=== PATIENT | male | born 1995 | race Caucasian/White ===

== ENCOUNTER 2018-06-18 12:02 | Emergency (ER) | payer OTHER, SELFPAY ==
[2018-06-18 12:04] VITALS: BP 152/94; PULSE 70; RESP 18; TEMP 37.1; O2SAT 95; BMI 22.8
[2018-06-18 12:06] VITALS: O2SAT 99
[2018-06-18] MEDS: 0.9% Normal Saline 1,000 ML 1000 ML IV ×2 (12:40)
[2018-06-18 12:41] VITALS: BP 131/73; BP 137/86; BP 142/87; PULSE 73; PULSE 76
[2018-06-18 12:54] LABS: Absolute Lymphocyte Count 1.62 X10^3/ul (0.83-4.51); Absolute Neutrophil Count 4.4 X10^3/uL (2.0-7.7); Basophil# 0.02 X10^3/uL; Basophil% 0.3 % (0-1); Eosinophil# 0.04 X10^3/uL; Eosinophils% 0.6 % (0-5); Hematocrit 42.8 % (40-54); Hemoglobin 14.8 g/dl (13.0-16.5); Lymphocyte # 1.62 X10^3/ul (4.0); Lymphocyte % 24.7 % (19-41); Mean Corp Hgb Conc 34.6 g/gl (32-36); Mean Corpuscular Hgb 31.8 pg (27.0-32.0); Monocyte% 7.6 % (0-10); Neutrophil # 4.37 X10^3/uL (2.7-7.7); Neutrophil % 66.8 % (47-70); Platelet Count 183 K/mm3 (150-450); RBC Distribution Width CV 12.7 % (11.6-14.6); RBC Distribution Width SD 42.2 fl (35.1-43.9); Red Blood Count 4.65 M/mm3 (4.6-6.2); White Blood Count 6.6 K/mm3 (4.4-11.0)
[2018-06-18 13:17] LABS: Anion Gap 9 (5-15); BUN 11 mg/dL (7-18); BUN/Creat Ratio 12.2 RATIO (10-20); Calcium,Total 9.2 mg/dL (8.5-10.1); Chloride 106 mmol/L (98-107); EST Glomerular Filtration Rate 110 mL/min (>60); Est Glom Filt Rate - Afr Amer 133 mL/min (>60); Estimated Creatinine Clearance 125.86 ml/min; Glucose 120 mg/dL (74-106); Potassium 3.4 mmol/L (3.5-5.1); Sodium Level 140 mmol/L (136-145)
[2018-06-18 13:26] LABS: POSITIVE COUNT NO; POSITIVE DIFFERENTIAL NO; POSITIVE MORPHOLOGY NO
--- NOTE | 2018-06-18 14:01 | ED.VISSUMM ---
- ER Visit Summary Date of Service: 06/18/18 Chief Complaint: Dizzy and lightheaded History of Present Illness: The patient is a 23 M past medical history. Patient states that he has drank for amount of alcohol this weekend. Today at work he felt lightheaded and dizzy. He was tingling all over. [place] like he might pass out but did not pass out. No LOC. Denies any chest pain. Denies any hemoptysis. Denies any recent travel surgery or mobilization. Denies any leg pain or swelling. No history of prior DVT or PE. He denies any vomiting, diarrhea or melena. No abdominal pain. Physical Examination: Well-appearing young male. Vital signs table is afebrile. His blood pressure 152/94. Pulse ox is 95% on room air his temperature is 98. He does not look septic or toxic he does not look in any distress. H EENT exam atraumatic. Pupils round reactive light. Moist mucous membranes. Posterior pharynx unremarkable. Neck nontender. No lymphadenopathy. No meningismus. Lungs clear to auscultation bilaterally. Heart regular rhythm no murmur rate about 70. Abdomen soft nontender. Normal bowel sounds is moving all 4 extremities. They are neurovascularly intact. Calves are nontender without edema or cords. Neurologically is awake alert with no focal motor or sensory deficits. NIH score is 0. Back exam normal. Skin exam normal. No rashes. No petechiae or purpura. Test Results: EKG sinus rhythm rate is 70 with no CO or ischemia. No dysrhythmia. White count 6. H&H 14 and 42. No bands. Electrolytes unremarkable. Potassium 3.4. Normal BUN and creatinine normal gap at 9 glucose of 120. Emergency Department Course and Treatment: Patient is doing well after liter normal saline. Orthostatic vital signs were negative prior to fluids being completed. Repeat exam is doing well at 1400. He is ambulating in the hallway. Treatment Plan: Plenty of fluids and rest. Follow-up with primary care physician if not improving. Disposition: Discharge Impression: Near syncope of uncertain etiology This note was generated with [employer] dictation software. It may contain incorrect words, spelling, and punctuation that were not noted in review of the chart prior to signing ED Disposition - Plan for ED Patient: Chief Complaint: Shortness of Breath Referrals: Care Physician,No Primary [Primary Care Provider] -
--- NOTE | 2018-06-18 14:05 | ED.DCSUM_ITS ---
- ER Visit Summary Date of Service: 06/18/18 Chief Complaint: Dizzy and lightheaded History of Present Illness: The patient is a 23 M past medical history. Patient states that he has drank for amount of alcohol this weekend. Today at work he felt lightheaded and dizzy. He was tingling all over. [place] like he might pass out but did not pass out. No LOC. Denies any chest pain. Denies any hemoptysis. Denies any recent travel surgery or mobilization. Denies any leg pain or swelling. No history of prior DVT or PE. He denies any vomiting, diarrhea or melena. No abdominal pain. Physical Examination: Well-appearing young male. Vital signs table is afebrile. His blood pressure 152/94. Pulse ox is 95% on room air his temperature is 98. He does not look septic or toxic he does not look in any distress. H EENT exam atraumatic. Pupils round reactive light. Moist mucous membranes. Posterior pharynx unremarkable. Neck nontender. No lymphadenopathy. No meningismus. Lungs clear to auscultation bilaterally. Heart regular rhythm no murmur rate about 70. Abdomen soft nontender. Normal bowel sounds is moving all 4 extremities. They are neurovascularly intact. Calves are nontender without edema or cords. Neurologically is awake alert with no focal motor or sensory deficits. NIH score is 0. Back exam normal. Skin exam normal. No rashes. No petechiae or purpura. Test Results: EKG sinus rhythm rate is 70 with no LA or ischemia. No dysrhythmia. White count 6. H&H 14 and 42. No bands. Electrolytes unremarkable. Potassium 3.4. Normal BUN and creatinine normal gap at 9 glucose of 120. Emergency Department Course and Treatment: Patient is doing well after liter normal saline. Orthostatic vital signs were negative prior to fluids being completed. Repeat exam is doing well at 1400. He is ambulating in the hallway. Treatment Plan: Plenty of fluids and rest. Follow-up with primary care physician if not improving. Disposition: Discharge Impression: Near syncope of uncertain etiology This note was generated with [employer] dictation software. It may contain incorrect words, spelling, and punctuation that were not noted in review of the chart prior to signing ED Disposition - Plan for ED Patient: Chief Complaint: Shortness of Breath Referrals: Care Physician,No Primary [Primary Care Provider] -
--- NOTE | 2018-06-18 14:05 | ED.DEP ---
ED Disposition - Plan for ED Patient: Disposition: Home or Assisted Living Chief Complaint: Shortness of Breath Instructions: ED Near Syncope Unkn Referrals: Donovan Emanuel MD [STAFF PHYSICIAN] - 1 Week if not improving Additional Instructions: Plenty of fluids and rest. Follow-up with not feeling better or return to ER if feeling worse.
[2018-06-18 14:39] VITALS: BP 124/94; PULSE 71; RESP 18; O2SAT 99
--- NOTE | 2018-06-19 11:09 | CM.ED ---
ED CALLBACK: Follow-up call placed to patient with no answer and no voicemail option.
== END 2018-06-18 14:40 | disposition home or self-care (01) ==
PROVIDERS: Emergency Provider Emergency Medicine
DX: R55 Syncope and collapse (principal); Z72.0 Tobacco use
CPT/HCPCS: 80048; 85025; 93005; 96360; 96361; 99285; J7030; A4216

== ENCOUNTER 2018-07-28 01:30 | Emergency (ER) | payer OTHER, SELFPAY ==
[2018-07-28 01:31] VITALS: BP 116/85; PULSE 76; RESP 15; TEMP 36.6; O2SAT 96; BMI 23.0
[2018-07-28 01:33] VITALS: O2SAT 96
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
[2018-07-28 02:22] VITALS: BP 124/60; PULSE 72; RESP 15; O2SAT 96
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
[2018-07-28 03:53] VITALS: BP 115/62; PULSE 83; RESP 18; O2SAT 99
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
[2018-07-28 04:35] VITALS: BP 110/67; PULSE 81; RESP 16; O2SAT 97
--- NOTE | 2018-07-28 04:36 | ED.RN ---
THIS NURSE REVIEWED D/C INSTRUCTIONS WITH PT AND FAMILY. PT VERBALIZED UNDERSTANDING OF INSTRUCTIONS. PT DENIES FURTHER NEEDS OR QUESTIONS AT THIS TIME. PT AMBULATES FROM ROOM ON OWN WITHOUT ASSISTANCE FROM STAFF
== END 2018-07-28 04:37 | disposition home or self-care (01) ==
PROVIDERS: Emergency Provider Emergency Medicine
DX: S27.321A Contusion of lung, unilateral, initial encounter (principal); S32.019A Unspecified fracture of first lumbar vertebra, initial encounter for closed fracture; V47.5XXA Car driver injured in collision with fixed or stationary object in traffic accident, initial encounter; Y93.9 Activity, unspecified; Y92.488 Other paved roadways as the place of occurrence of the external cause; Y99.9 Unspecified external cause status; Z72.0 Tobacco use
CPT/HCPCS: 72040; 72128; 74176; 99284

== ENCOUNTER → 2019-06-10 15:44 | Outpatient (CLI) | payer OTHER, SELFPAY ==
[2019-06-10 15:35] VITALS: BMI 23.0
--- NOTE | 2019-06-10 15:46 | RAD_ITS ---
STUDY: X-RAY - RIGHT HAND REASON FOR EXAM: Male, 24 years old. Injury right hand TECHNIQUE: 3 view(s) of the hand. COMPARISON: None FINDINGS: Normal radiocarpal articulation. Normal distal radioulnar joint. No fracture mid shaft fifth metacarpal with slight volar angulation. Normal carpal articulations Normal carpometacarpal articulation of the thumb. Normal second through fifth carpometacarpal joints. Normal metacarpi. Normal metacarpophalangeal joint of the thumb. Normal interphalangeal joint of the thumb. Normal proximal and distal phalanges of the thumb. Normal metacarpophalangeal joints of the second through fifth fingers. Normal proximal and distal interphalangeal joints of the second through fifth fingers. Normal phalanges of the second through fifth fingers. The soft tissue structures are unremarkable. RAD/Hand Min 3 Views IMPRESSION: Fracture fifth metacarpal Electronically Signed: Thad Hays MD at 16:07 EDT , Service support ,
== END ==
LOC: HPRAD 15:45
PROVIDERS: Referring Provider Physician Assistant Surgical; Visit Provider Physician Assistant Surgical
DX: S60.221A Contusion of right hand, initial encounter (principal)
CPT/HCPCS: 73130

== ENCOUNTER 2019-06-19 10:50 | Day surgery (SDC) | payer OTHER, SELFPAY ==
[2019-06-14 09:42] VITALS: BMI 23.6
[2019-06-19 11:21] VITALS: BP 118/73; PULSE 76; RESP 16; TEMP 36.9; O2SAT 99; BMI 22.8
[2019-06-19] MEDS: Lactated Ringers 1,000 ML 100 ML IV ×2 (11:35→13:40)
[2019-06-19] MEDS: Cefazolin 2 GM in 0.9% Normal Saline 100 ML IV (12:14)
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
--- NOTE | 2019-06-19 12:32 | PCM.DC.ORTHO ---
Discharge Diet: No Restrictions - leave splint on until seen in office, follow up in 2 weeks, nwb right arm, call with concerns, call for appt Discharge Activity: May Not Drive May shower in (days): 1 Ice area for (Minutes): 20 - Every hour while awake. Weight Bearing Status: Weight bearing as tolerated Keep extremity elevated above heart level: Operative Extremity Call your doctor if your incision/area has: Continuous Slow Oozing, Sudden Increased Bleeding, Increased Pain/ Swelling, Increased Redness, Foul Smelling Discharge Call your doctor if you observe: Fever of 101 or Higher, Coldness, Increased Pain, Numbness or Tingling, Change in Color, Calf discomfort Allergies/Adverse Reactions: Allergies No Known Allergies Allergy (Verified 06/19/19 11:16) Medications to take at Discharge Oxycodone HCl/Acetaminophen [Percocet 5/325] 1 - 2 tab PO Q6H PRN PRN 5 Days #28 tab 06/19/19 The following prescriptions were given: Oxycodone HCl/Acetaminophen [Percocet 5/325] 1 - 2 tab PO Q6H PRN PRN 5 Days #28 tab PRN Reason: Pain Transmission Status: Received by [facility] Primary Care Physician: Care Physician,No Primary [Primary Care Provider] - Test Results: Test results from this visit will be discussed in further detail at your follow-up appointment, if applicable. Please Follow Up With: Bonnie Alves, - [phone]
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
--- NOTE | 2019-06-19 12:33 | HP.PCM_ITS ---
History and Physical ADDENDUM Addendum entered and electronically signed by Bonnie Alves DO 06/14/19 10:29: add code [id number] Assessment & Plan Problems 1. Closed displaced fracture of shaft of fifth metacarpal bone of right hand, initial encounter S62.326A Plan - Bonnie Alves DO Reviewed the pre-operative plans with the patient. Risks and benefits of the procedure were fully explained, including but not limited to infection, neurovascular injury, continued pain, arthritis, stiffness, need for further surgery, re-injury, DVT, PE, general risks of anesthesia, and loss of limb or life. The patient understands all the risks and does wish to proceed with written consent. right hand fifth metacarpal orif. Follow up 2 weeks after surgery or sooner if pain, swelling, numbness or associated symptoms, or concerns develop. All questions answered. Patient in agreement of plan. Intake Vital Signs 06/14/19 Body Mass Index (BMI) 23.6 Intake Visit Reasons: R. HAND Allergies No Known Allergies Allergy (Verified 06/10/19 16:01) PFS Social History (Updated 06/14/19 @ 15:49 by DORY Lopez) Smoking Status: Current every day smoker alcohol intake: never I have re-examined the patient. There are no clinical changes since date of exam. HPI R. HAND: Details: Parts of this documentation were recorded by a scribe, this documentation accurately reflects the service provided and the decisions made by me, Wilder Metz DO 06/14/19 0751. THANH JOHNSON is a 24 year old M here today for right hand fracture. Patient states that about 2 weeks ago he punched a door. HE states that he had swelling and pain immediately after. He did not seek medical attention at that time as he had a previous fracture that he states he thought was similar and they didn't do anything for. He denies any numbness and tingling in the fingers. He is able to move his fingers fine. He has minimal pains. Ortho Exam Right Wrist/Hand Right Wrist: Yes TTP Fracture site Motor: EPL: 5, FDP-2: 5, 1st Dorsal Interosseous: 5, APB: 5 Assessment & Plan Problems 1. Closed displaced fracture of shaft of fifth metacarpal bone of right hand, initial encounter S62.204A Plan - Bonnie Alves DO Reviewed the pre-operative plans with the patient. Risks and benefits of the procedure were fully explained, including but not limited to infection, neurovascular injury, continued pain, arthritis, stiffness, need for further surgery, re-injury, DVT, PE, general risks of anesthesia, and loss of limb or life. The patient understands all the risks and does wish to proceed with written consent. right hand fifth metacarpal orif. Follow up 2 weeks after surgery or sooner if pain, swelling, numbness or associated symptoms, or concerns develop. All questions answered. Patient in agreement of plan. Coding Level of Care Code Off vis,new,level 3 Diagnoses Closed displaced fracture of shaft of fifth metacarpal bone of right hand, initial encounter N31.533K ??Encounter type: initial encounter ??Fracture alignment: displaced ??Fracture type: closed ??Metacarpal location: shaft
[2019-06-19] MEDS: Bupivacaine Mpf 0.5% 30 ML VIAL (14:00)
[2019-06-19] MEDS: Mupirocin Ointment 22gm Tube 1 APPLIC (14:20)
[2019-06-19 14:38] VITALS: BP 118/73; BP 127/79; PULSE 90; RESP 14; TEMP 36.7; O2SAT 98
[2019-06-19 14:46] VITALS: BP 118/73; BP 128/83; PULSE 70; RESP 16; O2SAT 97
[2019-06-19 15:00] VITALS: BP 118/73; BP 129/94; PULSE 66; RESP 16; TEMP 36.4; O2SAT 98
[2019-06-19 15:35] VITALS: BP 118/73
== END 2019-06-19 15:55 | disposition home or self-care (01) ==
LOC: SDC 10:54 → AC 10:55
PROVIDERS: Referring Provider Orthopaedic Surgery; Visit Provider Orthopaedic Surgery
PROC: (CPT 26615; principal; 2019-06-19 12:15)
DX: S62.326A Displaced fracture of shaft of fifth metacarpal bone, right hand, initial encounter for closed fracture (principal); W22.09XA Striking against other stationary object, initial encounter; F17.210 Nicotine dependence, cigarettes, uncomplicated
CPT/HCPCS: 01830; 26615; 73130; 76000; C1713; J7120; J2405

== ENCOUNTER → 2019-07-02 13:36 | Outpatient (CLI) | payer OTHER, SELFPAY ==
[2019-06-19 11:21] VITALS: BMI 22.8
--- NOTE | 2019-07-02 13:38 | RAD_ITS ---
STUDY: X-RAY - RIGHT HAND REASON FOR EXAM: Postop. TECHNIQUE: 3 view(s) of the hand. COMPARISON: Intraoperative images 06/19/2019. FINDINGS: Normal radiocarpal articulation. Normal distal radioulnar joint. Normal visualized carpal bones. Normal carpal articulations Normal carpometacarpal articulation of the thumb. Normal second through fifth carpometacarpal joints. There is an orthopedic plate and screws transfixing a fifth metacarpal diaphyseal fracture in anatomic alignment and position with early callus formation. There is healed fracture deformity of fourth metacarpal. Normal metacarpophalangeal joint of the thumb. Normal interphalangeal joint of the thumb. Normal proximal and distal phalanges of the thumb. Normal metacarpophalangeal joints of the second through fifth fingers. Normal proximal and distal interphalangeal joints of the second through fifth fingers. Normal phalanges of the second through fifth fingers. The soft tissue structures are unremarkable. RAD/Hand Min 3 Views IMPRESSION: ORIF of fifth metacarpal fracture with early callus formation. Electronically Signed: Raimundo Rodriguez MD at 16:00 EDT Tel , Service support ,
== END ==
PROVIDERS: Referring Provider Orthopaedic Surgery; Visit Provider Orthopaedic Surgery
DX: S62.306A Unspecified fracture of fifth metacarpal bone, right hand, initial encounter for closed fracture (principal); S60.221A Contusion of right hand, initial encounter
CPT/HCPCS: 73130

== ENCOUNTER 2019-08-01 12:30 | Outpatient (RCR) | payer OTHER, SELFPAY ==
[2019-07-02 13:49] VITALS: BMI 22.8
--- NOTE | 2019-07-03 12:37 | HP.OTEVAL_ITS ---
Patient's Visit Information THANH JOHNSON Jr. is a 24 year old M, referred to Occupational Therapy by Bonnie Alves DO, with a diagnosis of s/p R 5th metacarpal ORIF (06-19-19). Date of Evaluation: 07/03/19 Occupational Therapist: Viviana Luevano, OTR/L - Subjective Subjective: Thanh arrived with mother and noted original injury occured about a month ago after punching door. He noted surgery was 2 weeks ago on 06-19-19 in which he had ORIF placement to R 5th finger. Noted that he was working at [employer] and he is on a 10 lbs weight restriction. He is working at [employer] as [employer] and is on 10 lbs weight restriction. - ADLs Kitchen: Chop with knife, Open jars, Open bottle caps Yard: Mow lawn, [place], [place] Miscellaneous: Use hand tools, Use power tools, Use computer keyboard, Operate spray bottle Comments: Noted able to completed most self- care just increased - Pain R PF 0 Pain Intensity Range: 0, 4 - Objective Concerns: Has ankle monitor and is not permitted to drive at this time. Due to restrictions with driving OT working on getting him scheduled through van services. Mother noted she will bring to some appointments but also works. Due to driving restrictions will likely only completed 1x weekly appointments due to limited transportation and 20 copay. Educated there is about 10% break if completing copay at beginning of every appointment. - ROM Wrist: flexion R 0-70, L 0-75; ext R 0-43, L 0-46 MP: PF R 20-70, L -4-94 PIP: PF R 0-94, L 0-93 DIP: PF R 0-72, L 0-76 - Strength Strength Comments: will take at first session. - Edema Other: MCP circumference R 9 inchs, L 8.5 inches - Sensation Sensation Comments: Denies numbness or tingling. 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 Goal:: Thanh to regain at least 80% of ROM when compared to L nonaffected hand of PF for ADL/IADLs tasks by end of d/c. Goal:: Thanh to have no more than 1/10 pain with repetitive movements of freight and passenger agent and relase needed to return to PLOF for job related tasks by d/c. Goal:: Thanh to be mod I to complete edema management techniques of R hand to promote increased management of sweling 4/5 trials 80% of the time by d/c. Goal:: Thanh to complete daily scar massage to decrease scar tissue formation and promote ROM 4/5 trials 80% of the time by d/c. Goal:: Thanh to completed good ergonomic positioning and joint protection techniques of R hand 4/5 trials 80% of the time to promote tchniques needed to decrease risk of further inujury by d/c. Goal:: Thanh to complete daily HEP including management of splint 4/5 trials 80% of the time to promote returning to PLOF for strength and ROM by d/c. - Rehabilitation General Assessment: Thanh is s/p R 5th MCP ORIF after traumatic injury resulting from punching door. Thanh arrived to evaluation with mother on this date of 07/03/19. Thanh is working part-time at [employer] and is off work at [employer]. Thanh exhibits increased edema, decreased strength and ROM of R hand. 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 Skilled OT warranted to address pain, edema management, strength through PRE, and general ability to return to PLOF for all work and self-care tasks. Rehabilitation Potential: Excellent - Anticipated Interventions Anticipated Interventions: A/AAROM/PROM, Strengthening, Modalities, Orthoses, Joint Protection/Energy Conservation, Ergonomic Education, Fine Motor Coord/Shantanu, ADL Training, Caregiver Training, Home Program - Visit Plan Frequency: 1-2x /Week Duration: 4 Weeks General Plan: Thanh to complete weekly OT tx to promote increased ROM, strength through PRE, edema management, ergonomic and jt protection training, management of custom splint, and general ability to return to PLOF. TEXT: Thank you for the opportunity to evaluate your patient. For Medicare and Medicare HMO plans, please review the plan of care and approve it. It will need to be FAXED BACK to us at [phone] for Medicare purposes. Please let me know if there are questions or concerns regarding this plan of care. Physician Signature: Date:
--- NOTE | 2019-10-03 09:36 | HP.OTDCNRP_ITS ---
HP - Discharge Summary - Patient Information THANH JOHNSON Jr. was seen in my office for initial evaluation on 07/03/19. The following Plan of Care was established for this patient: Initial Frequency: 1-2x /Week Initial Duration: 4 Weeks Plan: continue POC. - Anticipated Interventions Anticipated Interventions: A/AAROM/PROM, Strengthening, Modalities, Orthoses, Joint Protection/Energy Conservation, Ergonomic Education, Fine Motor Coord/Shantanu, ADL Training, Caregiver Training, Home Program This patient was last seen in our office 08/01/19. Pertinent comments regarding their Occupational therapy will appear below: Last seen in clinic 08/01/19. He still had appointment to complete as part of plan of care but nothing was scheduled. 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 Chart will be d/c'd at this time. At this point I will be discontinuing this patient from occupational therapy. I would be happy to see this patient again in the future if found appropriate by the physician. Thank you! Viviana Luevano, OTR/L
== END 2019-08-01 19:00 | disposition home or self-care (01) ==
LOC: OT 12:30
PROVIDERS: Referring Provider Orthopaedic Surgery; Visit Provider Orthopaedic Surgery
DX: Z98.890 Other specified postprocedural states (principal)
CPT/HCPCS: 97166; 97530; 97760

== ENCOUNTER → 2019-08-01 13:14 | Outpatient (CLI) | payer OTHER, SELFPAY ==
[2019-08-01 13:14] VITALS: BMI 22.8
--- NOTE | 2019-08-01 13:16 | RAD_ITS ---
STUDY: X-RAY - RIGHT HAND REASON FOR EXAM: Follow-up fifth metacarpal fracture. TECHNIQUE: 3 view(s) of the hand. COMPARISON: Radiographs 07/02/2019. FINDINGS: Normal radiocarpal articulation. Normal distal radioulnar joint. Normal visualized carpal bones. Normal carpal articulations Normal carpometacarpal articulation of the thumb. Normal second through fifth carpometacarpal joints. There is an orthopedic plate and screws transfixing a fifth metacarpal diaphyseal fracture with increasing callus. There is chronic healed fracture deformity of the fourth metacarpal. Normal metacarpophalangeal joint of the thumb. Normal interphalangeal joint of the thumb. Normal proximal and distal phalanges of the thumb. Normal metacarpophalangeal joints of the second through fifth fingers. Normal proximal and distal interphalangeal joints of the second through fifth fingers. Normal phalanges of the second through fifth fingers. The soft tissue structures are unremarkable. RAD/Hand Min 3 Views IMPRESSION: ORIF of healing fifth metacarpal fracture. Electronically Signed: Raimundo Rodriguez MD at 14:33 EDT Tel , Service support ,
== END ==
PROVIDERS: Referring Provider Orthopaedic Surgery; Visit Provider Orthopaedic Surgery
DX: S60.221A Contusion of right hand, initial encounter (principal); S62.306A Unspecified fracture of fifth metacarpal bone, right hand, initial encounter for closed fracture; Z47.89 Encounter for other orthopedic aftercare
CPT/HCPCS: 73130

== ENCOUNTER → 2019-08-13 08:11 | Outpatient (CLI) | payer OTHER, SELFPAY ==
[2019-08-01 13:14] VITALS: BMI 22.8
--- NOTE | 2019-08-13 08:12 | RAD_ITS ---
STUDY: X-RAY - RIGHT HAND REASON FOR EXAM: Status post ORIF of fifth metacarpal fracture. TECHNIQUE: 3 view(s) of the hand. COMPARISON: Radiographs 08/01/2019 and 07/02/2019. FINDINGS: Normal radiocarpal articulation. Normal distal radioulnar joint. Normal visualized carpal bones. Normal carpal articulations Normal carpometacarpal articulation of the thumb. Normal second through fifth carpometacarpal joints. There is an orthopedic plate and screws transfixing a healing fracture of the fifth metacarpal diaphysis with little interval change. There is chronic healed fracture deformity of the fourth metacarpal diaphysis. Normal metacarpophalangeal joint of the thumb. Normal interphalangeal joint of the thumb. Normal proximal and distal phalanges of the thumb. Normal metacarpophalangeal joints of the second through fifth fingers. Normal proximal and distal interphalangeal joints of the second through fifth fingers. Normal phalanges of the second through fifth fingers. The soft tissue structures are unremarkable. RAD/Hand Min 3 Views IMPRESSION: Little interval change of ORIF of fifth metacarpal fracture. Electronically Signed: Raimundo Rodriguez MD at 11:43 EDT Tel , Service support ,
== END ==
PROVIDERS: Referring Provider Orthopaedic Surgery; Visit Provider Orthopaedic Surgery
DX: M79.643 Pain in unspecified hand (principal)
CPT/HCPCS: 73130

== ENCOUNTER 2019-10-02 08:36 | Day surgery (SDC) | payer OTHER, SELFPAY ==
[2019-08-13 08:16] VITALS: BMI 22.8
[2019-09-05 15:11] VITALS: BMI 22.8
[2019-10-02 08:55] VITALS: BP 139/81; PULSE 77; RESP 15; TEMP 36.6; O2SAT 100; BMI 22.8
[2019-10-02] MEDS: Lactated Ringers 1,000 ML 100 ML IV (09:05)
--- NOTE | 2019-10-02 10:22 | PCM.HP.BLA ---
History and Physical INSERT H AND P NO CHANGES Intake Vital Signs 09/05/19 Body Mass Index (BMI) 22.8 Intake Visit Reasons: right hand Allergies No Known Allergies Allergy (Verified 06/19/19 11:16) [facility] Social History (Updated 09/06/19 @ 08:05 by DORY Lopez) Smoking Status: Current every day smoker alcohol intake: never HPI right hand: Details: Parts of this documentation were recorded by a scribe, this documentation accurately reflects the service provided and the decisions made by me, DORY Lopez 09/05/19 [id number]. THANH JOHNSON is a 24 year old M here today for 2 month post op to sign surgery consent for hardware removal right fifth metacarpal. Denies numbness, tingling or other associated symptoms. ROS Musc Denies joint pain, Reports joint swelling, Denies numbness, Denies radiating pain into limb, Reports stiffness, Denies tingling Skin/Breast Denies redness, Denies lesions, Denies itching, Denies rash, Denies skin swelling Neuro No numbness, No tingling Ortho Exam Right Wrist/Hand Skin/Wound: Yes healed, No Swelling, No Ecchymosis Contralateral Normal: Yes Right Wrist: Yes ROM-Extension 0-60, ROM-Flexion 0-80, ROM-Pronation 0-80, ROM-Supination 0-90 and TTP Fracture site (Some tenderness over hardware) Sensation: Radial: I, Ulnar: I, Median: I WRIST: No acute abnormalities on inspection. There is no evidence of generalized swelling, ecchymosis/bruising, inflammatory changes, or other skin changes. Patient has some minor tenderness on palpation of the hardware. He does have intact motor function and full range of motion of the wrist as well as all the digits. He has normal sensation throughout the extremity, normal capillary refill, and normal distal radial pulses. Left Wrist/Hand Skin/Wound: No Swelling, No Ecchymosis no abd pain, no audible bruits, no r/r/w Assessment & Plan Problems 1. Closed displaced fracture of shaft of fifth metacarpal bone of right hand, initial encounter S62.326A Plan Patient presents to the office pre-surgery to sign consent for a hardware removal of the right fifth metacarpal. Patient states that he just has some discomfort in the area and would like to have this hardware removed. We discussed risks and benefits of the surgery as well as postoperative which include blood clot, blood loss, neurovascular injury, infection, failure of procedure, and loss of limb or loss of life. We also discussed that removing screws can create some weakening of the bone as these holes fill in. Patient is aware of these risks and would like to proceed with surgery for the hardware removal. Consent was signed in office today. Patient was given antimicrobial cleansed to be used the night before morning of. Patient be contacted by surgery/anesthesia for presurgery testing. Patient was already given the date of his surgery and will be notified the day before for the time of his surgery. Notify with any other questions or concerns in the meantime. This note was generated with [employer] dictation software. It may contain incorrect words, spelling, and punctuation that were not noted in checking the note before signing. Coding Level of Care Code Off vis,est,level 2 Diagnoses Closed displaced fracture of shaft of fifth metacarpal bone of right hand, initial encounter S62.326A ??Encounter type: initial encounter ??Fracture type: closed ??Metacarpal location: shaft ??Fracture alignment: displaced
--- NOTE | 2019-10-02 10:23 | DCINST_ITS ---
Discharge Diet: No Restrictions - right hand nwb, splint at all times, keep clean and dry, call with concerns, follow up in 2 weeks or sooner if issues Discharge Activity: May Not Drive May shower in (days): 1 Ice area for (Minutes): 20 - Every hour while awake. Weight Bearing Status: Weight bearing as tolerated Keep extremity elevated above heart level: Operative Extremity Call your doctor if your incision/area has: Continuous Slow Oozing, Sudden Increased Bleeding, Increased Pain/ Swelling, Increased Redness, Foul Smelling Discharge Call your doctor if you observe: Fever of 101 or Higher, Coldness, Increased Pain, Numbness or Tingling, Change in Color, Calf discomfort Allergies/Adverse Reactions: Allergies No Known Allergies Allergy (Verified 10/02/19 08:54) Medications to take at Discharge NK 08/01/19 Primary Care Physician: Care Physician,No Primary [Primary Care Provider] - Test Results: Test results from this visit will be discussed in further detail at your follow- up appointment, if applicable. Please Follow Up With: Bonnie Alves, - [phone]
--- NOTE | 2019-10-02 10:25 | PCM.OPRPT ---
Report of Operation Date of Procedure: 10/02/19 Pre-Operative Diagnosis: Painful hardware right fifth metacarpal Post-Operative Diagnosis: Same Surgery/Procedure Performed:: Right fifth metacarpal hardware removal, tenolysis of extensor tendons drum loader and unloader: Hugh Stover Type of Anesthesia:: General Anesthesiologist: Carlos Stein Estimated Blood Loss (mL): min Fluids Replaced: 800cc Description of Procedure: Preop note Patient is a 24-year-old male who had a ORIF of his right fifth metacarpal done a while ago. 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 Risk benefits and alternatives were discussed with patient. Risk including but not limited to blood loss, blood clot, infection, neurovascular, failure procedure, loss of life and loss of limb. Patient is aware would like proceed with right fifth metacarpal tenolysis as well as removal of hardware. Operative note Patient seen and examined preoperative holding area. Right hand was marked. Patient brought to the operating room placed supine the operating table. Signed, anesthesia, antibiotics were administered. Right arm was prepped and draped in usual sterile fashion with a tourniquet around his upper arm. Timeout was performed. We then marked out our incision using her previous incision and fluoroscopy. Right arm was then elevated exsanguinated and tourniquet was raised to pressure of 250 torr. Timeout was performed. We then used a 15 blade to cut through the skin dissect down tenotomy of the tendons. We then performed a Josefina lysis of the tendons and then dissected down to the level of the plate there was extensive scar tissue was debrided as well off the plate the screws and screws. Screws were removed sequentially and the plate was then removed. We then debrided back any pain scar tissue around that was around the laquita-plate and then used a curette to curette the hole of the previous screw holes for to advance healing. We then irrigated the incision with copious amounts sterile saline. We closed the periosteum to itself and then excised and performed more of extensive tenolysis of both the EDM as well as the EDC to the fifth. After this was done we then again irrigated with copious necessarily. The skin was closed with 3-0 Vicryl and 4-0 nylon sterile dressings and a splint was applied to the right hand ulnar gutter. Patient tied procedure well no complications recovery room in stable condition. Postoperative note Nonweightbearing right upper extremity Follow-up in 2 weeks for dressing change and stitch removal Patient states he does not need narcotics for postop will take ibuprofen but will call if there is any issues Neuro intact with end of the case Call with increased pain numbness tingling or further issues arise Dragon disclaimer This note was generated with [employer] dictation software. It may contain incorrect words, spelling, and punctuation that were not noted in checking the note before signing.
[2019-10-02] MEDS: Cefazolin 2 GM in 0.9% Normal Saline 100 ML IV (10:26)
--- NOTE | 2019-10-02 10:30 | RAD_ITS ---
STUDY: X-RAY - RIGHT HAND REASON FOR EXAM: Removal of metacarpal hardware. TECHNIQUE: 3 intraoperative images of the hand. COMPARISON: Radiographs 08/13/2019. FINDINGS: There is removal of the orthopedic plate and screws from the fifth metacarpal without evidence of complication. 8 seconds of fluoroscopy time was used. Electronically Signed: Raimundo Rodriguez MD at 14:52 EST Tel , Service support , RAD/Hand Min 3 Views
[2019-10-02] MEDS: Mupirocin Ointment 22gm Tube 1 APPLIC (11:29)
[2019-10-02] MEDS: Bupivacaine 0.25% 30 ML Vial (11:35)
[2019-10-02 12:06] VITALS: BP 119/84; BP 139/81; PULSE 84; RESP 14; TEMP 36.4; O2SAT 99
[2019-10-02 12:15] VITALS: BP 118/81; BP 139/81; PULSE 81; RESP 16; O2SAT 97
[2019-10-02 12:30] VITALS: BP 123/86; BP 139/81; PULSE 91; RESP 16; O2SAT 99
[2019-10-02 12:38] VITALS: BP 139/81; PULSE 78; RESP 16; TEMP 36.1; O2SAT 100
[2019-10-02] MEDS: HYDROcodone Bitartrate/Apap 5/325 Tablet PO (12:56)
[2019-10-02 13:53] VITALS: BP 139/81; BP 144/89; PULSE 70; RESP 18; TEMP 36.5; O2SAT 100
== END 2019-10-02 13:58 | disposition home or self-care (01) ==
LOC: SDC 08:37 → AC 08:38
PROVIDERS: Referring Provider Orthopaedic Surgery; Visit Provider Orthopaedic Surgery
PROC: (CPT 26320; principal; 2019-10-02 09:50)
DX: T84.84XA Pain due to internal orthopedic prosthetic devices, implants and grafts, initial encounter (principal); Y83.1 Surgical operation with implant of artificial internal device as the cause of abnormal reaction of the patient, or of later complication, without mention of misadventure at the time of the procedure; F17.210 Nicotine dependence, cigarettes, uncomplicated
CPT/HCPCS: 26320; 73130; 76000; J7120; J2405

== ENCOUNTER → 2019-10-28 09:26 | Outpatient (CLI) | payer OTHER, SELFPAY ==
[2019-10-02 08:55] VITALS: BMI 22.8
--- NOTE | 2019-10-28 09:26 | RAD_ITS ---
HISTORY: HISTORY: FOLLOW UP APPT XR Hand Min 3 Views COMPARISON: None FINDINGS: # of images incl. paperwork: 3 3 views of the right hand. Comparison study are intraoperative fluoroscopic views of the fifth metacarpal. Findings: Hardware has been removed from the fifth metacarpal. The fifth metacarpal fracture is not completely healed. Bony alignment is normal. Joint spaces are preserved. A foreign bodies are perceived. Soft tissue swelling remains over the fifth metacarpal. RAD/Hand Min 3 Views IMPRESSION: Incomplete healing fifth metacarpal fracture with soft tissue swelling. at 0227 Reported and signed by: Tramaine Lang MD Electronically Signed: Tramaine Lang MD at 2:26 EST Tel , Service support ,
== END ==
LOC: HPRAD 09:26
PROVIDERS: Referring Provider Physician Assistant; Visit Provider Physician Assistant
DX: Z98.890 Other specified postprocedural states (principal)
CPT/HCPCS: 73130

== ENCOUNTER 2022-04-29 21:55 | Emergency (ER) | payer BC, SELFPAY ==
[2022-04-29 21:56] VITALS: BP 146/92; PULSE 86; RESP 16; TEMP 36.3; O2SAT 96; BMI 24.3
--- NOTE | 2022-04-29 22:27 | EX.ED.UPPERE ---
HPI History of Present Illness Chief Complaint: Laceration Narrative Narrative: Patient presents with injury to his second digit on his right hand. He is right-hand dominant. He states he was opening a can of beans for his girlfriend when he sustained a laceration to the dorsum of his right second finger at the DIP joint. While it bled, he noticed that he is unable to extend the tip of his finger. He can flex it but he is unable to straighten it out. He is unsure of his last tetanus immunization. He denies other injury. [facility] Medical History (Updated 04/29/22 @ 23:45 by Benton Sandoval MD) L1 vertebral fracture Home Medications ofloxacin 0.3 % eye drops See Rx Instructions ophthalmic (eye) .COMPLEX #10 mL 03/06/21 [Rx Last Taken Unknown] Allergy/AdvReac Type Severity Reaction Status Date / Time No Known Allergies Allergy Verified 04/29/22 21:57 Surgical History (Updated 04/29/22 @ 22:48 by Kae Burton) H/O hand surgery Social History Smoking Status: Current every day smoker tobacco type: cigarettes alcohol intake: never ROS ROS ED ROS Narrative Constitutional: No fever, no chills. HEENT: No sore throat. No neck pain. No loss of vision. No rhinorrhea. Cardiovascular: No chest pain. No palpitations. No pedal edema. Respiratory: No cough, no shortness of breath. Abdominal: No abdominal pain. No nausea. No vomiting. Genitourinary: No dysuria. No hematuria. Musculoskeletal: No myalgias. No arthralgias. Finger laceration. Unable to extend tip of second digit on right hand. Neurologic: No headaches. No dizziness. No lightheadedness. Skin: No rash. No change in color. Psychiatric: No depression. No anxiety. EXAM Physical Exam Narrative Exam Narrative: Afebrile. Vital signs noted. HEENT: Normocephalic. Atraumatic. PERRL, EOMI. Neck soft and supple. No point tenderness or step off. Cardiovascular: Regular rate and rhythm. No murmurs, rubs, or gallops appreciated. Respiratory: No tachypnea. Lungs clear to auscultation bilaterally. Gastrointestinal: Abdomen soft, nontender, with normoactive bowel sounds. No rebound or guarding. Neurological: Awake. Alert. Nonfocal, nonlateralizing. Skin: No rash. Normal color. No pallor. 1.2 cm laceration over DIP joint on dorsum of second digit right hand. Musculoskeletal: No pedal edema. Full range of motion extremities. Positive flexion at DIP joint second digit, unable to extend fully. Const Vital Signs: 04/29/22 21:56 Temperature 97.3 F L Temperature Source Temporal Pulse Rate 86 Respiratory Rate 16 Blood Pressure 146/92 H Blood Pressure Mean 110 Pulse Ox 96 MDM MDM MDM Narrative Medical decision making narrative: Patient will be given an Adacel shot. He washed his laceration out in the sink in the emergency department. I will obtain x-rays of the second finger. I will also do wound exploration after local anesthetic to see if he has severed his extensor tendon. I interpreted his finger x-ray, there is no evidence of fracture. Lidocaine 1% was used as a local anesthetic. The laceration does not appear to violate the joint space. I am unable to fully see if the tendon has been severed. However, given his clinical presentation, I did discuss patient with Dr. Person who stated that I should lightly tacked the wound closed, splinted his finger in extension, and have him follow-up with Dr. Walters. Lidocaine 1% was used as a local anesthetic. 2 sutures using five-point 0 Ethilon were used to lightly approximate the skin edges. Patient did become lightheaded and mildly nauseated but declined anything for nausea. He did not have a syncopal episode. At this point in time, I stressed the importance of following up with Dr. Walters given his suspected extensor tendon laceration. Return instructions to the emergency department were reviewed. Disposition is discharged home in stable condition. Discharge Plan Triage Chief Complaint: Laceration ED Provider: Benton Sandoval Dx/Rx/DC Orders Clinical Impression: Finger laceration, Extensor tendon laceration of finger with open wound Instructions: ED Laceration, Hand: All Closures, ED Tendon Laceration Prescriptions: No Action ofloxacin 0.3 % drops See Rx Instructions ophthalmic (eye) .COMPLEX Qty: 10 0RF Rx Instructions: put 2 drps into left eye every 2h x 2 days, then 2 drps 4 times/day days 3-10 ophthalmic (eye) Primary Care Provider: Care Physician,No Primary Referrals: Silvio Walters DO [STAFF PHYSICIAN] - 05/02/22 (Extensor tendon laceration right second digit, DIP joint) Care Physician,No Primary [Primary Care Provider] - Activity Restrictions/Additional Instructions: Wear your splint until seen by orthopedics. It is important that you call the office on Monday for an appointment to be seen as soon as possible regarding your extensor tendon laceration. Disposition Disposition: Home, Self Care
[2022-04-29] MEDS: Diphth,Pertuss(Acell),Tet Vac 0.5 ML Vial IM (22:43)
[2022-04-29] MEDS: Lidocaine 1% (20 ml mdv) 20 ML Vial INFILT (22:44)
--- NOTE | 2022-04-29 22:50 | RAD_ITS ---
STUDY: X-RAY - RIGHT HAND, ATTENTION SECOND FINGER REASON FOR EXAM: Male, 27 years old. Laceration, pain TECHNIQUE: 3 view(s) of the finger were obtained. COMPARISON: 10/28/2019) radiograph FINDINGS: Normal metacarpal head. Normal metacarpophalangeal joint. Normal proximal phalanx. Normal middle phalanx. Normal distal phalanx. Normal proximal interphalangeal joint. Normal distal interphalangeal joint. There is no demonstrated fracture. RAD/Finger(s) Min 2 Views IMPRESSION: No acute abnormal finding. Electronically Signed: Diogo Christie MD at 23:27 EDT ,
== END 2022-04-30 00:16 | disposition home or self-care (01) ==
PROVIDERS: Emergency Provider Emergency Medicine; Visit Provider Emergency Medicine
DX: S66.329A Laceration of extensor muscle, fascia and tendon of unspecified finger at wrist and hand level, initial encounter (principal); R42 Dizziness and giddiness; R11.0 Nausea; W26.8XXA Contact with other sharp object(s), not elsewhere classified, initial encounter; F17.210 Nicotine dependence, cigarettes, uncomplicated; Z23 Encounter for immunization
CPT/HCPCS: 12001; 73140; 90471; 90715; 99284

== ENCOUNTER 2023-04-15 18:48 | Emergency (ER) | payer OTHER, SELFPAY ==
[2023-04-15 18:50] VITALS: BP 116/76; PULSE 106; RESP 18; TEMP 36.4; O2SAT 98; BMI 24.8
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
--- NOTE | 2023-04-15 19:13 | CT_ITS ---
STUDY: CT ABDOMEN AND PELVIS WITH CONTRAST REASON FOR EXAM: Male, 28 years old. RLQ pain -- IV PO Contrast RADIATION DOSAGE (If Supplied By Facility): CTDIvol = ( 14.22 ) mGy, DLP = ( 684.32 ) mGycm TECHNIQUE: Transaxial images were obtained from the dome of the diaphragm to the symphysis pubis with oral contrast. Oral and amp; IV Gastrografin and amp; 100mL Isovue-300 was administered. Sagittal and coronal images were reconstructed. Individualized dose optimization techniques were used for this CT. COMPARISON: 07/28/2018 FINDINGS: The visualized lung bases are unremarkable. The visualized portions of the heart are within normal limits. Normal liver. The gallbladder is contracted. Normal spleen. Normal pancreas. Normal bilateral adrenal glands. Normal right kidney. Normal left kidney. Normal visualized stomach. Normal small intestine. Normal colon. There is non-visualization of the appendix. Normal abdominal aorta. Normal inferior vena cava. Normal retroperitoneum. Normal urinary bladder. Normal abdominal wall. Bilateral pars defects the L5 vertebra consistent with L5 spondylolysis. No anterolisthesis of L5 on S1 to suggest spondylolisthesis. Mild wedging deformity of the L1 vertebra consistent with a transitional vertebra or chronic compression fracture. No retropulsion into the spinal canal. CT/Abdomen/Pelvis WITH Contrast IMPRESSION: Normal enhanced CT of the abdomen and pelvis. Electronically Signed: Nito Stack MD at 22:04 EDT ,
[2023-04-15 19:57] LABS: Bacteria 0 SEEN /hpf (None Seen); Mucous, Urine 0 SEEN /hpf (<or=2+); Red Blood Cells-Urine 0 SEEN /hpf (0-5); Squamous Epithelial Cells - UA 0 SEEN /hpf (0-5); White Blood Cells 0 SEEN /hpf (0-5)
[2023-04-15 19:58] LABS: Absolute Neutrophil Count 2.3 X10^3/uL (2.0-7.7); Basophil# 0.04 X10^3/uL; Basophil% 0.9 % (0-1); Eosinophil# 0.07 X10^3/uL; Eosinophils% 1.5 % (0-5); Hematocrit 41.8 % (40-54); Hemoglobin 14.4 g/dL (13.0-16.5); Lymphocyte % 39.3 % (19-41); Mean Corp Hgb Conc 34.4 g/dL (32-36); Mean Corpuscular Hgb 30.6 pg (27.0-32.0); Mean Corpuscular Volume 88.9 fL (80-94); Mean Platelet Vol. 9.4 fl (6.2-12.0); Monocyte% 8.7 % (0-10); NRBC Flagged by Analyzer 0 % (0-5); Neutrophil # 2.27 X10^3/uL (2.7-7.7); Neutrophil % 49.6 % (47-70); Platelet Count 247 K/mm3 (150-450); RBC Distribution Width CV 12.5 % (11.6-14.6); RBC Distribution Width SD 41.2 fl (35.1-43.9); White Blood Count 4.6 K/mm3 (4.4-11.0)
[2023-04-15 20:00] LABS: Color, Urine Yellow (Yellow); Glucose, Dipstick Normal (Normal); Ketone-Dipstick Negative (Negative); Leukocyte Esterase-Dipstick Negative /ul (Negative); Nitrite-Dipstick Negative (Negative); Occult Blood-Urine Negative /ul (Negative); Protein-Dipstick Negative (Negative); Urine Bilirubin Dipstick Negative (Negative); Urine Clarity Clear (Clear); Urine Urobilinogen Normal (Normal)
[2023-04-15 20:14] LABS: ALB/GLOB Ratio 0.9 RATIO (0.9-2.4); AST(SGOT) 33 U/L (15-37); Alanine Aminotransfer ALT/SGPT 36 U/L (16-61); Albumin, Serum 3.6 g/dL (3.2-5.0); Alkaline Phosphatase 78 U/L (45-117); Anion Gap 9 (5-15); BUN 15 mg/dL (7-18); BUN/Creat Ratio 13.6 RATIO (10-20); Calcium,Total 8.6 mg/dL (8.5-10.1); Chloride 103 mmol/L (98-107); EST Glomerular Filtration Rate 84 mL/min (>60); Est Glom Filt Rate - Afr Amer 102 mL/min (>60); Estimated Creatinine Clearance 99.09 ml/min; Globulin 4.1 g/dL (2.2-4.2); Glucose 99 mg/dL (74-106); Protein, Total 7.7 g/dL (6.4-8.2); Sodium Level 136 mmol/L (136-145)
[2023-04-15 22:23] VITALS: BP 129/77; PULSE 67; RESP 15; O2SAT 99
== END 2023-04-15 22:29 | disposition home or self-care (01) ==
PROVIDERS: Emergency Provider Emergency Medicine; Visit Provider Emergency Medicine
DX: R10.31 Right lower quadrant pain (principal); F17.210 Nicotine dependence, cigarettes, uncomplicated
CPT/HCPCS: 74177; 80053; 81001; 85025; 99283; Q9967; A4216

== ENCOUNTER → 2023-05-24 | Outpatient (CLI) | payer OTHER, SELFPAY ==
--- NOTE | 2023-05-24 06:55 | RAD_ITS ---
EXAM: XR ORBITS FOREIGN BODY CLINICAL INDICATION: XRAY BEFORE MRI TECHNIQUE: Frontal view(s) of the orbits. COMPARISON: No relevant prior studies available. FINDINGS: BONES/JOINTS: No acute abnormality. SINUSES: Normal. No air-fluid levels. SOFT TISSUES: Normal. No radiopaque foreign body. RAD/Orbits for Foreign Body IMPRESSION: Normal orbital x-rays. No radiopaque foreign body in either orbit. Electronically Signed: Rafael Kruse MD at 7:08 EDT ,
--- NOTE | 2023-05-24 07:09 | MRI_ITS ---
STUDY: MRI RIGHT HIP REASON FOR EXAM: Male, 28 years old. AVN, R HIP PAIN TECHNIQUE: Standardized fat and water weighted pulse sequences were obtained in all 3 orthogonal planes. COMPARISON: X-ray 05/19/2023 FINDINGS: Normal hip joint without articular joint space narrowing. Normal acetabulum. Normal labrum. Serpiginous hypointensity of the superior aspect of the femoral head with surrounding edema consistent with avascular necrosis. Mild collapse of the articular surface of the femoral head. Normal femoral neck and intratrochanteric region. Small joint effusion. Incidentally noted is a small serpiginous hypointense and narrowed area of the superior left femoral head consistent with early avascular necrosis. Normal gluteus minimus, medius and iliopsoas tendons and distal insertions. There is no trochanteric, iliopsoas or iliopectineal bursitis. Normal superior and inferior pubic rami. Normal pubic symphysis. Normal ischial tuberosity. Normal origin of the hamstring tendons. Normal visualized iliac wing, sacroiliac joint, and sacral ala. Normal visualized soft tissue structures of the pelvis. 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 Electronically Signed: Nito Stack MD at 9:17 EDT ,
== END | disposition home or self-care (01) ==
PROVIDERS: Referring Provider Orthopaedic Surgery Sports Medicine; Visit Provider Orthopaedic Surgery Sports Medicine
DX: M87.00 Idiopathic aseptic necrosis of unspecified bone (principal)
CPT/HCPCS: 70030; 73721

== ENCOUNTER → 2023-06-02 | Outpatient (CLI) | payer OTHER, SELFPAY ==
--- NOTE | 2023-06-02 08:13 | MRI_ITS ---
STUDY: MRI LEFT HIP REASON FOR EXAM: Male, 28 years old. Rule out AVN, severe LEFT hip pain TECHNIQUE: Standardized fat and water weighted pulse sequences were obtained in all 3 orthogonal planes. COMPARISON: MRI right hip May 24, 2023. CT pelvis April 15, 2023. FINDINGS: Normal hip joint without articular joint space narrowing. There is small joint effusion. Normal acetabulum. Normal labrum. There are curvilinear diminished T1 signal regions of avascular necrosis of the superior and anterior left femoral head. Normal femoral neck and intratrochanteric region. There is no demonstrated left hip fracture. There is stable avascular necrosis of the right femoral head with degenerative change and stress injury/fracture of the right acetabulum and proximal femur. Normal gluteus minimus, medius and iliopsoas tendons and distal insertions. There is no trochanteric, iliopsoas or iliopectineal bursitis. Normal superior and inferior pubic rami. Normal pubic symphysis. Normal ischial tuberosity. Normal origin of the hamstring tendons. Normal visualized iliac wing, sacroiliac joint, and sacral ala. Normal visualized soft tissue structures of the pelvis. Normal urinary bladder. No dilated loops of bowel. MRI/Lower Ext Joint Only (Routine) IMPRESSION: Avascular necrosis. No left hip fracture seen. Electronically Signed: David Kelsey MD at 10:56 EDT ,
== END | disposition home or self-care (01) ==
PROVIDERS: Referring Provider Orthopaedic Surgery Sports Medicine; Visit Provider Orthopaedic Surgery Sports Medicine
DX: M87.00 Idiopathic aseptic necrosis of unspecified bone (principal)
CPT/HCPCS: 73721

== ENCOUNTER 2023-08-01 22:17 | Emergency (ER) | payer OTHER, SELFPAY ==
[2023-08-01 22:18] VITALS: BP 169/97; PULSE 96; RESP 14; TEMP 37.7; O2SAT 100; BMI 25.6
[2023-08-01 22:20] VITALS: BP 169/97; PULSE 96; RESP 16; TEMP 37.7; O2SAT 100
--- NOTE | 2023-08-01 22:46 | CT_ITS ---
EXAM: CT RIGHT LOWER EXTREMITY WITHOUT INTRAVENOUS CONTRAST CLINICAL INDICATION: pain / ? Seroma versus hematoma TECHNIQUE: Helically acquired images were obtained of the right lower extremity without intravenous contrast. 2-D reformats were performed by the technologist. CTDIvol = ( 14.49 ) mGy, DLP = ( 731.16 ) mGycm This CT exam was performed using one or more of the following dose reduction techniques: automated exposure control, adjustment of the mA and/or kV according to patient size, and/or use of iterative reconstruction technique. COMPARISON: August 01, 2023 and June 02, 2023 FINDINGS: BONES/JOINTS: Right total hip arthroplasty with satisfactory alignment and no complications. At least moderate size suprapatellar joint effusion is incompletely imaged on this study. No acute or healing fracture or malalignment. No other unusual lytic or sclerotic lesions of bone. SOFT TISSUES: Soft tissue gas at the left lateral aspect of the buttock region and thigh. Edema involving the vastus intermedius muscle laterally. Subcutaneous edema from the buttock region extending down to the mid thigh level worse laterally. No radiopaque foreign body. OTHER FINDINGS: No organized fluid collections. CT/Extremity Lower without Contra IMPRESSION: 1. Edema involving the vastus intermedius muscle laterally. 2. Subcutaneous edema from the buttock regions to the mid thigh level with no organized fluid collections identified. 3. Moderate suprapatellar joint effusion is incompletely imaged on this study. Electronically Signed: Dandre Lucero MD at 0:37 EDT ,
--- NOTE | 2023-08-01 22:49 | US_ITS ---
EXAM: US DUPLEX RIGHT LOWER EXTREMITY VEINS CLINICAL INDICATION: right leg pain, s/p sx TECHNIQUE: Real-time duplex ultrasound scan of the right lower extremity veins integrating B-mode two-dimensional vascular structure, Doppler spectral analysis, color flow Doppler imaging and compression. COMPARISON: No relevant prior studies available. FINDINGS: DEEP VEINS: Unremarkable. No DVT in the visualized common femoral, femoral, proximal deep femoral or popliteal veins. The veins demonstrate normal color flow, are normally compressible, with normal phasic flow and/or augmentation response. SUPERFICIAL VEINS: Unremarkable. No thrombus in the visualized great saphenous vein. SOFT TISSUES: No acute findings. Right popliteal cyst measuring 2.5 x 0.6 x 2.6 cm. This is located medially. US/Venous Duplex Imag/Limited/Uni IMPRESSION: No DVT. 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 Electronically Signed: Dandre Lucero MD at 0:13 EDT ,
[2023-08-01] MEDS: 0.9% Normal Saline (1000mL) 1,000 ML 999 ML IV (23:01)
[2023-08-01] MEDS: Ondansetron 4 MG/2 ML Vial IV (23:02)
[2023-08-01] MEDS: fentaNYL 100 MCG/2 ML Ampul 50 MCG IV (23:02)
[2023-08-01 23:10] LABS: Absolute Lymphocyte Count 1.04 X10^3/uL (0.83-4.51); Absolute Neutrophil Count 6.6 X10^3/uL (2.0-7.7); Basophil# 0.02 X10^3/uL; Basophil% 0.2 % (0-1); Eosinophil# 0.01 X10^3/uL; Eosinophils% 0.1 % (0-5); Hematocrit 36.3 % (40-54); Hemoglobin 12.2 g/dL (13.0-16.5); Lymphocyte # 1.04 X10^3/ul (0.83-4.51); Lymphocyte % 12.3 % (19-41); Mean Corp Hgb Conc 33.6 g/dL (32-36); Mean Corpuscular Hgb 30.8 pg (27.0-32.0); Mean Corpuscular Volume 91.7 fL (80-94); Mean Platelet Vol. 10.4 fl (6.2-12.0); Monocyte# 0.81 X10^3/uL; Monocyte% 9.6 % (0-10); NRBC Flagged by Analyzer 0 % (0-5); Neutrophil # 6.56 X10^3/uL (2.7-7.7); Neutrophil % 77.4 % (47-70); Platelet Count 235 K/mm3 (150-450); RBC Distribution Width CV 13.3 % (11.6-14.6); RBC Distribution Width SD 45.1 fl (35.1-43.9); Red Blood Count 3.96 M/mm3 (4.6-6.2); White Blood Count 8.5 K/mm3 (4.4-11.0)
[2023-08-01 23:19] LABS: Erythrocyte Sedimentation Rate 32 mm/hr (0-20); Prothrombin Time (Protime)PT. 13.5 SECONDS (11.7-14.9)
[2023-08-01 23:20] LABS: Partial Thromboplast Time 26.5 Seconds (24.1-36.2)
[2023-08-01 23:39] LABS: Procalcitonin 0.12 ng/mL (0.00-0.09)
[2023-08-01 23:49] LABS: Anion Gap 7 (5-15); BUN 4 mg/dL (7-18); BUN/Creat Ratio 4.4 RATIO (10-20); Calcium,Total 9.1 mg/dL (8.5-10.1); Chloride 107 mmol/L (98-107); EST Glomerular Filtration Rate 106 mL/min (>60); Est Glom Filt Rate - Afr Amer 128 mL/min (>60); Estimated Creatinine Clearance 121.11 ml/min; Glucose 141 mg/dL (74-106); Lactic Acid 1.8 mmol/L (0.4-1.9); Potassium 3.8 mmol/L (3.5-5.1); Sodium Level 137 mmol/L (136-145)
[2023-08-02] MEDS: HYDROmorphone 1 MG/ML Syringe IV ×3 (00:14→02:24)
[2023-08-02 00:17] VITALS: BP 135/86; PULSE 88; RESP 16; TEMP 38.2; O2SAT 99
--- NOTE | 2023-08-02 00:24 | EDS_ITS ---
HPI History of Present Illness Chief Complaint: Lower Extremity Injury Informant: patient and parent Narrative Narrative: Patient is a 28-year-old male who underwent outpatient surgery on his right femoral head yesterday secondary to avascular necrosis. He states surgery took a few hours and he was discharged home and was feeling normal. However today despite taking his medication he has had increased pain and he cannot weight- bear like he did yesterday and he noticed increased swelling and redness of the right thigh. He states he has had low-grade temperature associated with this. He denies any chest pain or shortness of breath. He states he tried contacting his surgeon without any success and therefore comes to the hospital for evaluation. [facility] Medical History L1 vertebral fracture Right hip pain Home Medications acetaminophen 500 mg tablet 1,000 mg PO Q8H PRN PRN pain 08/01/23 [History Last Taken Unknown] ascorbic acid (vitamin C) 500 mg tablet 1 g PO BID 08/01/23 [History Last Taken Unknown] aspirin 81 mg tablet,delayed release (Enteric Coated Aspirin) 81 mg PO BID 08/01/23 [History Last Taken Unknown] baclofen 10 mg tablet 10 mg PO TID 08/01/23 [History Last Taken Unknown] bisacodyl 5 mg tablet 10 mg PO DAILY 08/01/23 [History Last Taken Unknown] celecoxib 200 mg capsule (Celebrex) 200 mg PO DAILY 08/01/23 [History Last Taken Unknown] cephalexin 500 mg capsule 500 mg PO TID 08/01/23 [History Last Taken Unknown] ferrous sulfate 325 mg (65 mg iron) tablet,delayed release 325 mg PO DAILY 08/01/23 [History Last Taken Unknown] oxycodone 5 mg tablet 5 mg PO Q4H 08/01/23 [History Last Taken Unknown] pantoprazole 20 mg tablet,delayed release 20 mg PO DAILY 08/01/23 [History Last Taken Unknown] oxycodone 20 mg tablet,crush resistant,extended release 12 hr 20 mg PO BID 5 days #10 tabs 08/02/23 [Rx Last Taken Unknown] Allergy/AdvReac Type Severity Reaction Status Date / Time No Known Allergies Allergy Verified 08/01/23 22:22 Surgical History H/O hand surgery Social History Smoking Status: Current every day smoker tobacco type: cigarettes ROS ROS ED Constitutional Constitutional ED: Reports fever(s); Denies chills ENT ENT ED: Denies sore throat Cardiovascular Cardiovascular: Denies chest pain, palpitations or racing heartbeat Respiratory/Chest Respiratory/Chest: Denies cough or dyspnea Gastrointestinal Gastrointestinal: Denies abdominal pain, diarrhea, nausea or vomiting Genitourinary Genitourinary ED: Denies dysuria Musculoskeletal Musculoskeletal: Reports other Details: Positive right thigh/hip pain Integumentary Reports other Details: Positive erythema Neurologic Neurologic: Denies headache(s) Hematologic/Lymphatic Hematologic/Lymphatic: Denies easy bleeding or easy bruising EXAM Physical Exam Const Vital Signs: 08/01/23 22:18 08/01/23 22:20 08/02/23 00:17 Temperature 99.9 F H 99.9 F H 100.7 F H Temperature Source Oral Oral Oral Pulse Rate 96 96 88 Respiratory Rate 14 16 16 Blood Pressure 169/97 H 169/97 H 135/86 H Blood Pressure Mean 121 121 102 Pulse Ox 100 100 99 Oxygen Delivery Method Room Air Room Air Room Air 08/02/23 01:35 08/02/23 02:26 Temperature Temperature Source Pulse Rate 86 92 Respiratory Rate 15 15 Blood Pressure 151/94 H 150/82 H Blood Pressure Mean 113 104 Pulse Ox 99 97 Oxygen Delivery Method Room Air Positive well nourished and well developed General Appearance ED: well developed HEENT HEENT Narrative: Normocephalic atraumatic Eyes PERRL and EOMs intact bilaterally General Eye ED: Negative for scleral icterus Neck supple and no JVD Neck Narrative: No nuchal rigidity or meningeal signs noted Resp normal respiratory effort and clear to auscultation bilaterally Resp Narrative: No nasal flaring retractions tachypnea or accessory muscle use Cardio regular rate and regular rhythm Rate: other Other Details: No murmurs rubs or gallops GI non-tender and non-distended GI Narrative: Abdomen is soft nontender nondistended with hypoactive bowel sounds. No voluntary guarding or rigidity. No pulsatile mass Auscultation: hypoactive bowel sounds Palpation: soft Extremity Extremity Narrative: Patient has a surgical wound to the lateral aspect of his right proximal thigh consistent with his history of recent surgery. Wound is clean dry and intact without surrounding erythema discharge or streaking. The anterior proximal third of the thigh is erythematous and slightly warm and swollen compared to the left. There is mild firmness with palpation but compartments are still compressible going against compartment syndrome. No lymphangitic streaking noted. No calf swelling bilaterally and negative Homans' sign bilaterally Active range of motion of the right leg is decreased secondary to pain. Neuro oriented x3, CN's II-XII intact bilaterally and no sensory deficits noted Sensorium / Orientation: alert Psych mental status grossly normal Skin Skin Narrative: Soft tissue changes of the right thigh as documented above MDM MDM MDM Narrative Medical decision making narrative: Patient presented to the ER with low-grade fever otherwise no clinically significant vital. He had surgery roughly 24 hours ago and physical exam showing diffuse swelling with some erythema to the proximal thigh most concerning or consistent for postoperative hematoma or seroma. Differential diagnosis also includes secondary infection such as cellulitis deep vein thrombosis compartment syndrome. Consideration was also taken for potential pneumonia versus pulmonary embolus based on his low-grade fever and recent surgery. However he is not tachycardic he does not have pleuritic chest pain he is not hypoxic and therefore I felt no need for a CTA of his chest. Blood work revealed no signs of infection with no leukocytosis lactic acidosis or elevation to his procalcitonin. CT scan showed diffuse swelling without loculated or localized fluid collection going against hematoma seroma or abscess. The case was discussed with Dr. Reese/orthopedic on-call for [facility]. He agrees that at this time as DVT has been ruled out he does not have overt signs of infection there is no obvious hematoma or seroma that needs drained as long his pain is under control patient can be discharged and follow-up on an outpatient basis History & Record Review Discussion w/independent historian: Patient and Family Lab Data Attestation: I reviewed the patient's lab results. Labs: Laboratory Results - last 24 hr 08/01/23 22:29 WBC 8.5 RBC 3.96 L Hgb 12.2 L Hct 36.3 L MCV 91.7 MCH 30.8 MCHC 33.6 RDW Std Deviation 45.1 H RDW Coeff of Bo 13.3 Plt Count 235 MPV 10.4 Immature Gran % (Auto) 0.400 Neut % (Auto) 77.4 H Lymph % (Auto) 12.3 L [place] % (Auto) 9.6 Eos % (Auto) 0.1 Baso % (Auto) 0.2 Absolute Neuts (auto) 6.6 Absolute Lymphs (auto) 1.04 Nucleated RBC % 0 ESR 32 H PT 13.5 INR 1.0 APTT 26.5 Sodium 137 Potassium 3.8 Chloride 107 Carbon Dioxide 23.0 Anion Gap 7 BUN 4 L Creatinine 0.90 Estim Creat Clear Calc 121.11 Est GFR (MDRD) Af Amer 128 Est GFR (MDRD) Non-Af 106 BUN/Creatinine Ratio 4.4 L Glucose 141 H Lactic Acid 1.8 Calcium 9.1 C-React Prot Ext Range 110.00 H Procalcitonin 0.12 H Radiography Diagnostic Testing: Clinical Impression(s) from Imaging Studies Lower Extremity CT 08/01/23 22:46 IMPRESSION: 1. Edema involving the vastus intermedius muscle laterally. 2. Subcutaneous edema from the buttock regions to the mid thigh level with no organized fluid collections identified. 3. Moderate suprapatellar joint effusion is incompletely imaged on this study. Electronically Signed: Dandre Lucero MD at 0:37 EDT , Venous Duplex 08/01/23 22:49 IMPRESSION: No DVT. 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 Electronically Signed: Dandre Lucero MD at 0:13 EDT , Chest X-Ray 08/02/23 00:25 IMPRESSION: No radiographic evidence of acute cardiopulmonary disease. Electronically Signed: Dandre Lucero MD at 1:23 EDT , 1 view chest x-ray as interpreted by the emergency medicine physician reveals no acute infiltrate pneumothorax or pleural effusion Management Discussion w/another healthcare provider: Pe[employer]icker Discharge Plan Triage Chief Complaint: Lower Extremity Injury ED Provider: Andes,Dandre Dx/Rx/DC Orders Clinical Impression: Edema of thigh, Post-operative pain, AVN (avascular necrosis of bone) Instructions: Pain Management After Surgery Prescriptions: New oxycodone 20 mg tablet,oral only,ext.rel.12 hr 20 mg PO BID 5 Days Qty: 10 0RF No Action acetaminophen 500 mg tablet 1,000 mg PO Q8H PRN PRN (Reason: pain) ascorbic acid (vitamin C) 500 mg tablet 1 g PO BID aspirin [Enteric Coated Aspirin] 81 mg tablet,delayed release (DR/EC) 81 mg PO BID baclofen 10 mg tablet 10 mg PO TID bisacodyl 5 mg tablet 10 mg PO DAILY celecoxib [Celebrex] 200 mg capsule 200 mg PO DAILY cephalexin 500 mg capsule 500 mg PO TID ferrous sulfate 325 mg (65 mg iron) tablet,delayed release (DR/EC) 325 mg PO DAILY oxycodone 5 mg tablet 5 mg PO Q4H pantoprazole 20 mg tablet,delayed release (DR/EC) 20 mg PO DAILY Primary Care Provider: Care Physician,Erin Primary Referrals: Care Physician,No Primary [Primary Care Provider] - Activity Restrictions/Additional Instructions: Please contact your orthopedic surgeon today to obtain a follow-up visit in the next few days. Continue your immediate release oxycodone every 4 hours as directed but now add the extended release oxycodone twice a day for improved pain control. Please return to the ER should you have any further concerns Disposition Disposition: Home, Self Care Discharge Date/Time: 08/02/23 02:30
--- NOTE | 2023-08-02 00:25 | RAD_ITS ---
EXAM: XR CHEST, 1 VIEW CLINICAL INDICATION: fever TECHNIQUE: Frontal view of the chest. COMPARISON: No relevant prior studies available. FINDINGS: LUNGS AND PLEURAL SPACES: Unremarkable. No consolidation or edema. No pneumothorax. No effusion. HEART: Unremarkable. Cardiac silhouette not enlarged. MEDIASTINUM: Central airways and mediastinal contour are unremarkable. BONES/JOINTS: Unremarkable. SOFT TISSUES: Unremarkable. RAD/Chest 1 View (Portable) IMPRESSION: No radiographic evidence of acute cardiopulmonary disease. Electronically Signed: Dandre Lucero MD at 1:23 EDT ,
[2023-08-02] MEDS: Acetaminophen 500 MG Tablet 1000 MG PO (00:49)
[2023-08-02 01:35] VITALS: BP 151/94; PULSE 86; RESP 15; O2SAT 99
[2023-08-02 02:26] VITALS: BP 150/82; PULSE 92; RESP 15; O2SAT 97
== END 2023-08-02 02:30 | disposition home or self-care (01) ==
PROVIDERS: Emergency Provider Emergency Medicine; Visit Provider Emergency Medicine
DX: R60.0 Localized edema (principal); M87.9 Osteonecrosis, unspecified; G89.18 Other acute postprocedural pain; F17.210 Nicotine dependence, cigarettes, uncomplicated
CPT/HCPCS: 71045; 73700; 80048; 83605; 84145; 85025; 85610; 85652; 85730; 86140; 93971; 96361; 96374; 96375; 96376; 99282; J7030; A4216; J2405

== ENCOUNTER 2024-06-16 21:53 | Emergency (ER) | payer SELFPAY ==
[2024-06-16 21:53] VITALS: BP 139/96; PULSE 85; RESP 16; TEMP 36.6; O2SAT 99; BMI 25.1
--- NOTE | 2024-06-16 22:00 | RAD_ITS ---
EXAM: XR LEFT KNEE COMPLETE, 4 OR MORE VIEWS CLINICAL INDICATION: Injury/Pain TECHNIQUE: Four or more views of the left knee. COMPARISON: No relevant prior studies available. FINDINGS: BONES/JOINTS: There is an ununited ossification center at the anterior tibial tubercle, a normal variant. Serpiginous sclerosis noted within the medullary space of the distal femur and proximal tibia, indicating old bone infarcts. There is also subtle sclerosis within the proximal fibular neck, which may represent an additional old bone infarct. No acute fracture. No subluxation. Normal alignment. The joint spaces are preserved. No lytic osseous lesion. No periosteal elevation. SOFT TISSUES: A small- moderate suprapatellar knee effusion is present. Soft tissue swelling noted overlying the medial femoral condyle on the sunrise view. No radiopaque foreign body. RAD/Knee 4 or More Views IMPRESSION: 1. 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 2. Knee effusion. 3. No acute fracture or dislocation. Electronically Signed: Mckay Miguel MD at 23:43 EDT ,
--- NOTE | 2024-06-16 22:04 | EDS_ITS ---
HPI History of Present Illness Chief Complaint: Lower Extremity Injury Detail of Chief Complaint: Left knee while fishing Informant: patient Occured/Mechanism Mechanism/Context: Yes injury Comment: Patient states he awoke yesterday with stiff knee. Today he was fishing. He fell and his knee bent inward and back forward. Onset/Context/Timing Onset: Today and Hours Context: Sudden Onset Timing: Continuous Quality of Pain: Dull and Aching Location: Left knee Current Severity: Mild Maximum Severity: Moderate Worsened by: Movement and weightbearing Relieved by: Patient took 800 mg of ibuprofen and 2 Tylenol tablets prior to arrival. H Associated Symptoms Associated Symptoms: Negative for Parasthesia, Weakness or Loss of Funtion Narrative Narrative: Patient is a 29-year-old male. He had a traumatic injury to his knee with a chainsaw. This was superficial. He has had swelling of his knee in the past. He denies history of ACL or meniscus injury. He denies any sport injury. He denies paresthesia, anesthesia or motor weakness. Tetanus Immunization: Unknown Prior similar symptoms: Yes Recent Illness/Hospitalization: No PFSH [facility] [place] Medical History Right hip pain L1 vertebral fracture Home Medications ?Medication ?Instructions ?Recorded ?Last Taken ?Type acetaminophen 500 mg tablet 1,000 mg PO Q8H PRN PRN pain 08/01/23 Unknown History ascorbic acid (vitamin C) 500 mg 1 g PO BID 08/01/23 Unknown History tablet aspirin 81 mg tablet,delayed 81 mg PO BID 08/01/23 Unknown History release (Enteric Coated Aspirin) baclofen 10 mg tablet 10 mg PO TID 08/01/23 Unknown History bisacodyl 5 mg tablet 10 mg PO DAILY 08/01/23 Unknown History celecoxib 200 mg capsule (Celebrex) 200 mg PO DAILY 08/01/23 Unknown History cephalexin 500 mg capsule 500 mg PO TID 08/01/23 Unknown History ferrous sulfate 325 mg (65 mg 325 mg PO DAILY 08/01/23 Unknown History iron) tablet,delayed release oxycodone 5 mg tablet 5 mg PO Q4H 08/01/23 Unknown History pantoprazole 20 mg tablet,delayed 20 mg PO DAILY 08/01/23 Unknown History release oxycodone 20 mg tablet,crush 20 mg PO BID 5 days #10 tabs 08/02/23 Unknown Rx resistant,extended release 12 hr Allergy/AdvReac Type Severity Reaction Status Date / Time No Known Allergies Allergy Verified 06/16/24 21:53 Surgical History H/O hand surgery Social History Smoking Status: Current every day smoker tobacco type: cigarettes ROS ROS ED Constitutional Constitutional ED: Denies chills, fever(s), subjective or sweats Cardiovascular Cardiovascular: Denies chest pain or palpitations Respiratory/Chest Respiratory/Chest: Denies dyspnea Musculoskeletal Musculoskeletal: Reports other Details: Left knee pain and swelling Integumentary Denies rash Neurologic Neurologic: Denies paresthesias or weakness EXAM Physical Exam Const Vital Signs: 06/16/24 21:53 Temperature 98 F Temperature Source Temporal Pulse Rate 85 Respiratory Rate 16 Blood Pressure 139/96 H Blood Pressure Mean 110 Pulse Ox 99 Oxygen Delivery Method Room Air Positive well nourished and well developed General Appearance ED: well developed; Negative for NAD HEENT normocephalic and atraumatic Eyes PERRL Eyes Narrative: Extract muscle intact. Resp normal respiratory effort Cardio regular rate and regular rhythm Extremity full ROM; Negative for normal to inspection Extremity Narrative: Left knee is swollen. The scar is noted that is well-healed. Patella is not ballotable. There is an effusion. Varus valgus tress testing causes laxity of both the MCL and LCL compared to the uninvolved joint. Negative laxity with Doris's test. Modified Dee was limited due to pain. There is no click appreciated. General Extremety ED: Negative for cyanosis or edema General Extremity: Negative for cyanosis or edema Neuro oriented x3, CN's II-XII intact bilaterally and moves all extremities Sensorium / Orientation: alert Motor Exam: strength 5/5 throughout Psych mental status grossly normal Skin no wounds Lesions: no lesions Rashes: no rashes MDM MDM MDM Narrative Medical decision making narrative: Patient has a traumatic effusion. Will obtain x-ray to evaluate for fracture versus ligamentous injury. Radiography Chest X-Ray - ED: Read by ED Physician (4 view x-ray of the knee reveals evidence that patient had [place]-Schlatter's disease. There is an effusion. There is no acute process noted other than the effusion.) Treatment and Re-Evaluation Narrative: Patient was instructed follow-up with his orthopedic surgeon or he may follow-up with Dr. Erickson who is local since his surgeon is located in [place]. Patient informed that he is leaving for [place] on Monday and will be back in town for greater than a month. Radiology was asked to make a disc. He was instructed to follow-up with [place] if needed. Discharge Plan Triage Chief Complaint: Lower Extremity Injury ED Provider: Bill Davies Dx/Rx/DC Orders Clinical Impression: Effusion of left knee joint, Difficulty in walking, Elevated blood-pressure reading without diagnosis of hypertension Instructions: ED Knee Effusion Prescriptions: No Action acetaminophen 500 mg tablet 1,000 mg PO Q8H PRN PRN (Reason: pain) ascorbic acid (vitamin C) 500 mg tablet 1 g PO BID aspirin [Enteric Coated Aspirin] 81 mg tablet,delayed release (DR/EC) 81 mg PO BID baclofen 10 mg tablet 10 mg PO TID bisacodyl 5 mg tablet 10 mg PO DAILY celecoxib [Celebrex] 200 mg capsule 200 mg PO DAILY cephalexin 500 mg capsule 500 mg PO TID ferrous sulfate 325 mg (65 mg iron) tablet,delayed release (DR/EC) 325 mg PO DAILY oxycodone 5 mg tablet 5 mg PO Q4H pantoprazole 20 mg tablet,delayed release (DR/EC) 20 mg PO DAILY oxycodone 20 mg tablet,oral only,ext.rel.12 hr 20 mg PO BID 5 Days Qty: 10 0RF Primary Care Provider: Care Physician,No Primary Referrals: Care Physician,No Primary [Primary Care Provider] - Activity Restrictions/Additional Instructions: 1. Apply ice to your left knee 6 times a day 2. Take either 4 ibuprofen tablets every 8 hours or 2 Aleve tablets every 12 hours for the next 3 to 5 days. Print Language: Mongolian Disposition Disposition: Home, Self Care
== END 2024-06-16 23:38 | disposition home or self-care (01) ==
PROVIDERS: Emergency Provider Emergency Medicine; Visit Provider Emergency Medicine
DX: M25.462 Effusion, left knee (principal); R26.2 Difficulty in walking, not elsewhere classified; R03.0 Elevated blood-pressure reading, without diagnosis of hypertension; F17.210 Nicotine dependence, cigarettes, uncomplicated; W18.39XA Other fall on same level, initial encounter; Y93.89 Activity, other specified
CPT/HCPCS: 73564; 99282

== ENCOUNTER 2025-07-24 19:04 | Emergency (ER) | payer SELFPAY ==
[2025-07-24 19:04] VITALS: BP 145/92; PULSE 97; RESP 16; TEMP 36.6; O2SAT 98; BMI 27.8
[2025-07-24] MEDS: Ketorolac 30 MG/ML Syringe 15 MG IM (19:39)
--- NOTE | 2025-07-24 19:49 | RAD_ITS ---
PROCEDURE: KNEE 4 OR MORE VIEWS 07/24/2025 REASON FOR EXAM: INJURY/PAIN TECHNIQUE: Procedure Code: RADKN Modality: DX Procedure: KNEE 4 OR MORE VIEWS Laterality: FINDINGS: No evidence of acute fracture or dislocation. The joint spaces are maintained. Suprapatellar knee joint effusion. RAD/Knee 4 or More Views IMPRESSION: Suprapatellar knee joint effusion. Reading Location: [id number]
--- NOTE | 2025-07-24 19:56 | EDS_ITS ---
HPI History of Present Illness Chief Complaint: Lower Extremity Injury Detail of Chief Complaint: Recurrent atraumatic right knee pain and swelling Informant: patient Onset/Context/Timing Onset: Today Context: Sudden Onset Timing: Continuous Quality: Right knee pain and swelling Location: Right knee Current Severity: Mild Maximum Severity: Severe Worsened by: Movement Relieved by: Better with rest Associated Symptoms Associated Symptoms: No constitutional symptoms. Narrative Narrative: Patient is a 30-year-old male. He has history of recurrent atraumatic right knee effusion. He was seen in orthopedic surgeon office several weeks ago. He had arthrocentesis done. Apparently fluid was not sent for analysis. He has no history of gout or pseudogout. He denies fever, chills night sweats. He denies history of steroid use. Does have a history of avascular necrosis of his femoral head. Apparently his father had a vascular necrosis of his femoral head as well. He denies any recent dental procedure or surgical procedure. He denies paresthesia, anesthesia or motor weakness. Has had several episodes of swelling of his knee with pain. Most recent being 1 week ago. Prior similar symptoms: Yes Recent Illness/Hospitalization: Yes PFSH [facility] Medical History Right hip pain L1 vertebral fracture Home Medications ?Medication ?Instructions ?Recorded ?Last Taken ?Type NK 07/24/25 Unknown History Allergy/AdvReac Type Severity Reaction Status Date / Time No Known Allergies Allergy Verified 07/24/25 19:06 Surgical History H/O hand surgery Social History Smoking Status: Current every day smoker tobacco type: cigarettes ROS ROS ED Constitutional Constitutional ED: Denies chills, fever(s), subjective or sweats Eyes Eyes: Denies blurry vision, change in vision or diplopia Cardiovascular Cardiovascular: Denies chest pain, orthopnea, palpitations or racing heartbeat Respiratory/Chest Respiratory/Chest: Denies cough, dyspnea, dyspnea on exertion or orthopnea Musculoskeletal Musculoskeletal: Reports other Details: Right knee pain and swelling ; Denies arthralgias, back pain, myalgias or neck pain Integumentary Denies rash Neurologic Neurologic: Denies headache(s) or paresthesias Hematologic/Lymphatic Hematologic/Lymphatic: Reports systems reviewed and no addt'l complaints, except as documented EXAM Physical Exam Const Vital Signs: 07/24/25 19:04 07/25/25 00:00 Temperature 98 F 98.1 F Temperature Source Oral Oral Pulse Rate 97 96 Respiratory Rate 16 18 Blood Pressure 145/92 H 131/82 H Blood Pressure Mean 109 98 Pulse Ox 98 99 Oxygen Delivery Method Room Air Room Air Positive well nourished and well developed General Appearance ED: well developed; Negative for cyanotic, diaphoretic or pallor HEENT Reports moist mucous membranes Eyes PERRL and EOMs intact bilaterally General Eye ED: Negative for pale conjunctiva or scleral icterus Resp normal respiratory effort Cardio regular rate and regular rhythm Extremity Negative for normal to inspection Extremity Narrative: Right knee is markedly swollen. Question of the patella being ballotable. There is a large suprapatella effusion clinically. He has pain with varus valgus stress testing and passive flexion extension. The knee is not warm. There is no erythema. There is no evidence of cellulitis. He has no popliteal or inguinal lymphadenopathy. He has palpable distal pulses i.e. DP and PT Neuro oriented x3 and CN's II-XII intact bilaterally Sensorium / Orientation: alert Skin no rashes or lesions noted and skin turgor normal General Skin Exam: elasticity normal; Negative for jaundice or pallor MDM MDM MDM Narrative Medical decision making narrative: Patient with recurrent atraumatic effusion of the right knee. Will obtain x- ray. Since x-ray does not reveal any significant abnormality patient was consented for arthrocentesis. Patient was prepped draped sterile manner. He was anesthetized 1% lidocaine for local filtration. 50 cc of a cloudy yellow fluid was aspirated. The knee joint was injected with mixture of Kenalog and lidocaine. Appropriate studies were sent. This included cell count, Gram stain, culture and crystals Lab Data Labs: Laboratory Results - last 24 hr 07/24/25 07/24/25 21:29 23:37 WBC 6.4 RBC 4.31 L Hgb 13.3 Hct 37.2 L MCV 86.3 MCH 30.9 MCHC 35.8 RDW Std Deviation 40.1 RDW Coeff of Bo 12.6 Plt Count 263 MPV 10.0 Immature Gran % (Auto) 1.200 H Neut % (Auto) 70.7 H Lymph % (Auto) 17.6 L [place] % (Auto) 9.5 Eos % (Auto) 0.5 Baso % (Auto) 0.5 Absolute Neuts (auto) 4.6 Absolute Lymphs (auto) 1.13 Nucleated RBC % 0 ESR 9 C-React Prot Ext Range 18.30 H Synovial WBC 24.8900 H Synovial RBC 917 H Synovial Tot Cell Ct 24.9600 H Synov Polynuclear WBCs 20.386 Synov Mononuclear WBCs 1.261 Synovial Polynuclear % 94.2 Synovial Mononuclear % 5.8 Gram stain revealed no organisms. Therefore will discharge to home. His white count was normal. CRP was slightly elevated. ESR was normal. Radiography Chest X-Ray - ED: Read by ED Physician (4 view x-ray of the knee reveals a effusion with some mild degenerative changes. There is no evidence of fracture, subluxation or dislocation.) Diagnostic Testing: Clinical Impression(s) from Imaging Studies Knee X-Ray 07/24/25 19:49 IMPRESSION: Suprapatellar knee joint effusion. Reading Location: [address] Discharge Plan Triage Chief Complaint: Lower Extremity Injury ED Provider: Bill Davies Dx/Rx/DC Orders Clinical Impression: Effusion of knee joint right, Elevated blood pressure reading without diagnosis of hypertension Instructions: ED Hypertension, To Be Confirmed, ED Fluid on the Knee Prescriptions: No Action NK Stand Alone Forms: ED Work / School Excuse Primary Care Provider: Care Physician,No Primary Referrals: Care Physician,No Primary [Primary Care Provider, Medical] [facility] [Non-Staff, Medical] - 3-5 Days if not improving Print Language: German Disposition Disposition: Home, Self Care
[2025-07-24 22:44] LABS: Synovial Fld Mononuclear WBC # 1.261 10^3/ul; Synovial Fld Mononuclear WBC % 5.8 %; Synovial Fld Polynuclear WBC # 20.386 10^3/uL; Synovial Fld Polynuclear WBC % 94.2 %
[2025-07-24 23:00] LABS: Total Cell Count Synovial Fld 24.9600 10^3/uL (0.000-0.000)
[2025-07-24 23:01] LABS: WBC / Synovial Fluid 24.8900 10^3/uL (0.000-0.002)
[2025-07-24 23:05] LABS: AUTO B FLUID DILUENT BKGD CT WBC <0.1 RBC <0.01 (W<.1,R<.01); Source / Synovial Fluid RIGHT KNEE; Source- Body Fluid SYNOVIAL
[2025-07-24 23:09] LABS: Color / Synovial Fluid Yellow (Pale Yellow)
[2025-07-24 23:10] LABS: Appearance /Synovial Fluid Turbid (CLEAR); Body Fluid QC Type(s) BF1Q, BF2Q
[2025-07-25] VITALS: BP 131/82; PULSE 96; RESP 18; TEMP 36.7; O2SAT 99
[2025-07-25 00:12] LABS: CRP 18.30 mg/L (0.0-3.0); Hematocrit 37.2 % (40-54); Hemoglobin 13.3 g/dL (13.0-16.5); Immature Granulocytes Count 0.080 X10^3/uL (0.0-0.0); Mean Corp Hgb Conc 35.8 g/dL (32-36); Mean Corpuscular Volume 86.3 fL (80-94); Mean Platelet Vol. 10.0 fl (6.2-12.0); NRBC Flagged by Analyzer 0 % (0-5); Platelet Count 263 K/mm3 (150-450); RBC Distribution Width CV 12.6 % (11.6-14.6); RBC Distribution Width SD 40.1 fl (35.1-43.9); Red Blood Count 4.31 M/mm3 (4.6-6.2); White Blood Count 6.4 K/mm3 (4.4-11.0)
[2025-07-25 01:05] LABS: RBC /Synovial Fluid 917 /mm3 (0)
[2025-07-25 01:53] VITALS: BP 131/82; PULSE 96; RESP 18; TEMP 36.7; O2SAT 99
[2025-07-25 02:00] LABS: Monocyte /Synovial Fluid 3 %
[2025-07-25 02:26] LABS: CRYSTALS, BODY FLUID MONOSODIUM URATE
== END 2025-07-25 01:54 | disposition home or self-care (01) ==
PROVIDERS: Emergency Provider Emergency Medicine; Visit Provider Emergency Medicine
DX: M25.461 Effusion, right knee (principal); R03.0 Elevated blood-pressure reading, without diagnosis of hypertension; F17.210 Nicotine dependence, cigarettes, uncomplicated
CPT/HCPCS: 20610; 73564; 85025; 85652; 86140; 87070; 87075; 87205; 89050; 89051; 89060; 96372; 99283; A4216

== ENCOUNTER 2025-08-15 18:24 | Emergency (ER) | payer OTHER, SELFPAY ==
[2025-08-15 18:25] VITALS: BP 143/92; PULSE 87; RESP 18; TEMP 36.4; O2SAT 100; BMI 25.8
--- NOTE | 2025-08-15 18:35 | ED.RN ---
called Christopher to inquire if there is anyone director of clinical education for Drug testing. No one is director of clinical education. unsure if anyone from [employer] could do it tomorrow.
[2025-08-15] MEDS: Lidocaine 1% (20 ml mdv) 20 ML Vial INFILT (18:49)
--- NOTE | 2025-08-15 19:01 | EX.ED.GENINJ ---
HPI History of Present Illness Chief Complaint: Laceration Narrative Narrative: Chief complaint and HPI: 30-year-old male presents for evaluation of left upper lip laceration. Patient states that he accidentally cut his lip on a Semi door while working. His last tetanus was 2021. He denies injury elsewhere. Not on blood thinners. Review of systems: See HPI Medications: As listed on the chart Allergies: As listed on the chart PFSH: Per chart Vital signs: As listed on the chart. Reviewed. Physical exam: Gen: A&O x3, NAD Head: Normocephalic, atraumatic Eyes: No sclera icterus, conjunctiva clear, pupils equal bilaterally ENT: Moist mucous membranes, laceration to the left upper lip that crosses the vermilion border-minimal active bleeding, no facial tenderness, face atraumatic otherwise Neck: Trachea midline, full range of motion CV: RRR, no murmurs Resp: Lungs CTA BL, no w/r/c Psych: Cooperative, appropriate mood and affect PFS PFSH Medical History Right hip pain L1 vertebral fracture Home Medications ?Medication ?Instructions ?Recorded ?Last Taken ?Type NK 07/24/25 Unknown History Allergy/AdvReac Type Severity Reaction Status Date / Time No Known Allergies Allergy Verified 08/15/25 18:25 Surgical History H/O hand surgery Social History (Updated 08/15/25 @ 18:38 by Maureen Judge) housing: house Smoking Status: Current every day smoker tobacco type: cigarettes EXAM Physical Exam Const Vital Signs: 08/15/25 18:25 Temperature 97.5 F L Temperature Source Temporal Pulse Rate 87 Respiratory Rate 18 Blood Pressure 143/92 H Blood Pressure Mean 109 Pulse Ox 100 Oxygen Delivery Method Room Air MDM MDM MDM Narrative Medical decision making narrative: 30-year-old male presents for evaluation of left upper lip laceration. Patient states that he accidentally cut his lip on a Semi door while working. His last tetanus was 2021. He denies injury elsewhere. Not on blood thinners. Patient's laceration will need repaired. Patient tolerated laceration repair well. 4 of the sutures will absorb. 3 of the sutures need to be removed in 5 days. He confirmed understanding of the plan. Monitor for signs of infection. Follow-up with Worker's Compensation. Tylenol and Motrin as needed for pain. Patient stable to discharge home. Laceration Repair Indication: Laceration Location: 1.5 cm laceration to the left upper lip crossing the vermilion border Consent: Risks, benefits, and alternatives discussed with patient and consent obtained Procedure: The area was prepped and draped in the usual sterile fashion. Local anesthesia was achieved using 1% Lidocaine without epinephrine. The wound was copiously irrigated and cleaned. 4 sutures were placed in the mucosa of the lip using 5-0 Vicryl in an interrupted fashion. 3 sutures were placed in the skin above the lip using 6-0 Ethilon in an interrupted fashion. I did make sure to lined up the vermilion border. The estimated blood loss was minimal. Bacitracin applied. The patient tolerated the procedure well without complications. Foreign Material: None Debridement: None Follow-up: Anticipatory guidance, as well as standard post-procedure care, was explained. Return precautions are given. Follow-up visit set for suture removal and evaluation of the laceration. Impression: 1. Left upper lip laceration 2. Injury at work Discharge Plan Triage Chief Complaint: Laceration ED Provider: Trevor Singh Dx/Rx/DC Orders Prescriptions: No Action NK Primary Care Provider: Care Physician,No Primary Referrals: Care Physician,No Primary [Primary Care Provider, Medical] Print Language: [place] Citizen
[2025-08-15 19:44] VITALS: BP 157/77; PULSE 72; RESP 16; TEMP 36.7; O2SAT 98
== END 2025-08-15 19:46 | disposition home or self-care (01) ==
PROVIDERS: Emergency Provider Surgery; Visit Provider Surgery
DX: S01.511A Laceration without foreign body of lip, initial encounter (principal); F17.210 Nicotine dependence, cigarettes, uncomplicated; W26.8XXA Contact with other sharp object(s), not elsewhere classified, initial encounter; Y99.0 Civilian activity done for income or pay
CPT/HCPCS: 12011; 99283